=== PATIENT | female | born 1945 | race African-American/Black ===

== ENCOUNTER 2017-01-25 08:06 | Emergency (ER) | payer MEDICARE, OTHER ==
[2017-01-25 08:46] LABS: BASOPHIL % 0.6 % (0-2); PLATELET COUNT 235 x10^3mcL (130-400); RED CELL DISTRIBUTION WIDTH 14.5 % (11.5-14.5)
[2017-01-25 08:50] LABS: microscopic required? YES; urine erythrocyte 1+ (NEGATIVE)
[2017-01-25 09:35] LABS: CARBON DIOXIDE 33.6 mmol/L (21-32); CHLORIDE SERUM 103 mmol/L (98-107); CREATININE SERUM 0.9 mg/dL (0.6-1.0); GFR1 > 60 mL/min; GLUCOSE SERUM 115 mg/dL (74-106); POTASSIUM SERUM 3.6 mmol/L (3.5-5.1); SODIUM SERUM 143 mmol/L (136-145)
[2017-01-25 09:36] LABS: ALBUMIN 3.8 g/dL (3.4-5.0); ALT/SGPT 28 U/L (14-59); AST/SGOT 23 U/L (15-37); BILIRUBIN TOTAL 0.33 mg/dL (0.20-1.00); CALCIUM 9.2 mg/dL (8.5-10.1)
[2017-01-25 09:37] LABS: ALKALINE PHOSPHATASE 78 U/L (46-116)
[2017-01-25 13:07] VITALS: BP 130/68
== END 2017-01-25 13:07 | disposition home or self-care (01) ==
LOC: ED 08:06
PROVIDERS: Emergency Medicine
DX: S80.12XA Contusion of left lower leg, initial encounter (principal); I10 Essential (primary) hypertension; D21.9 Benign neoplasm of connective and other soft tissue, unspecified; W17.89XA Other fall from one level to another, initial encounter; Y93.89 Activity, other specified; Y99.8 Other external cause status; Y92.89 Other specified places as the place of occurrence of the external cause
CPT/HCPCS: 83880

== ENCOUNTER 2018-12-05 11:49 | Emergency (ER) | payer MEDICARE, OTHER ==
[~2018-12-05] VITALS: Ht 162.6 cm; Wt 80.3 kg
[2018-12-05 12:02] VITALS: Ht 162.6 cm; Wt 80.3 kg
[2018-12-05 15:03] VITALS: BP 165/86
== END 2018-12-05 15:03 | disposition home or self-care (01) ==
LOC: ED 11:49
DX: H65.91 Unspecified nonsuppurative otitis media, right ear (principal); H57.89 Other specified disorders of eye and adnexa; I10 Essential (primary) hypertension

== ENCOUNTER 2018-12-19 08:29 | Emergency (ER) | payer MEDICARE, OTHER ==
[~2018-12-19] VITALS: Ht 167.6 cm; Wt 79.4 kg
[2018-12-19 08:32] VITALS: Ht 167.6 cm; Wt 79.4 kg
[2018-12-19 10:39] VITALS: BP 158/74
== END 2018-12-19 10:39 | disposition home or self-care (01) ==
LOC: ED 08:29
DX: H61.21 Impacted cerumen, right ear (principal); I10 Essential (primary) hypertension

== ENCOUNTER 2019-03-11 18:26 | Emergency (ER) | payer MEDICARE, OTHER ==
[~2019-03-11] VITALS: Ht 165.1 cm; Wt 78.9 kg
[2019-03-11 18:36] VITALS: Ht 165.1 cm; Wt 78.9 kg
[2019-03-11 22:29] VITALS: BP 137/74
== END 2019-03-11 22:29 | disposition home or self-care (01) ==
LOC: ED 18:26
DX: G44.209 Tension-type headache, unspecified, not intractable (principal); H60.91 Unspecified otitis externa, right ear; I10 Essential (primary) hypertension
CPT/HCPCS: J1885